=== PATIENT | male | born 1950 | race African-American/Black ===

== ENCOUNTER 2018-07-13 05:43 | Day surgery (SDC) | payer MEDICARE, OTHER ==
[2018-07-12 12:27] VITALS: BMI 28.8
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
[2018-07-13] MEDS ORDERED: Thrombin 5000 UNITS/5 ML VIAL ONE (06:24)
[2018-07-13] MEDS ORDERED: Bupivacaine HCl 0.5%/Epinephrine 1:200,000/PF 30 ml Vial ONE (06:24)
[2018-07-13] MEDS ORDERED: Fentanyl 100 MCG/2 ML VIAL ONE ×2 (07:10→09:47)
[2018-07-13] MEDS ORDERED: HYDROcodone/Acetaminophen 5/325 mg Tablet ONE (12:18)
--- NOTE | 2018-07-13 14:49 | OP ---
DATE OF PROCEDURE: 07/13/2018 PRINTING MACHINE MECHANIC: Amandeep Mejia PA-C INDICATION: Prevent neurologic decline. DIAGNOSIS: Lumbar stenosis with neurogenic claudication. PROCEDURES PERFORMED: L4-L5 lumbar decompression. ANESTHESIA: General. DESCRIPTION OF PROCEDURE: The patient was brought into the operating room and placed under general anesthesia. He was flipped from the supine to prone position on the operating room table. A linear incision was planned over L4-L5. After prepping and draping and after an appropriate preoperative pause, the incision was created. The soft tissues were swept away from midline. Self-retaining retractors were placed in the wound for optimal exposure. After confirming the appropriate level with C-arm fluoroscopy, an Adson rongeur was used to remove the spinous process along the inferior aspect of L4 and the superior aspect of L5. A high-speed cutting drill bit as well as 2, 3, and 4 mm Kerrisons were then used to complete the laminectomy, which included a medial facetectomy along the medial third of both facet joints at L4-L5. The wound was irrigated. Hemostasis was maintained throughout. The wound was then closed in anatomic layers and a pressure dressing was applied. There were no known procedural complications. Job ID: [id number]
[2018-07-13] MEDS ORDERED: Ondansetron PF 4 MG/2 ML Vial ONE (16:43)
[2018-07-13] MEDS ORDERED: Glycopyrrolate 0.2 MG/ML 5 ML SYRINGE ONE (16:43)
[2018-07-13] MEDS ORDERED: Lidocaine 1% PF 5 ML VIAL ONE (16:43)
[2018-07-13] MEDS ORDERED: PHENYLEPHRINE-NS 100 MCG/ML 10 ML SYRINGE ONE (16:43)
[2018-07-13] MEDS ORDERED: Ketorolac Tromethamine 30 MG/ML VIAL ONE (16:43)
[2018-07-13] MEDS ORDERED: Vecuronium 10 MG VIAL ONE (16:43)
[2018-07-13] MEDS ORDERED: PROPOFOL 200 MG/20 ML VIAL ONE (16:43)
== END 2018-07-13 12:52 | disposition home or self-care (01) ==
LOC: SDC 05:43
PROVIDERS: ATTEND Neurological Surgery
PROC: 0SB20ZZ Excision of Lumbar Vertebral Disc, Open Approach (ICD-10-PCS; principal; 2018-07-13)
DX: M48.062 Spinal stenosis, lumbar region with neurogenic claudication (principal); I10 Essential (primary) hypertension; E78.00 Pure hypercholesterolemia, unspecified; E03.9 Hypothyroidism, unspecified; M19.90 Unspecified osteoarthritis, unspecified site; Z79.82 Long term (current) use of aspirin; Z79.899 Other long term (current) drug therapy
CPT/HCPCS: 76000; 93005; 93010; J0670; J0690; J1885; J2001; J2405; J2704; J3010